=== PATIENT | female | born 1950 | race Caucasian/White ===

== ENCOUNTER 2019-08-08 09:55 | Outpatient (CLI) | payer MEDICARE, BC ==
--- NOTE | 2019-08-08 10:56 | MRI ---
MRI Lumbar Spine WO Con HISTORY: Back pain which radiates to hip and knee region worse on the right. COMPARISON: None. FINDINGS: The vertebral bodies are normal in height disc space height all appears well preserved. The re is no significant periaortic adenopathy and the visualized portions of the kidneys appear unremarkable. T11-12: There is a mild disc bulge at this level with some borderline canal narrowing. T12-L1: Unremarkable. L1-2: Degenerative facet changes without canal or foraminal stenosis. L2-3: Degenerative facet changes without canal or foraminal narrowing. L3-4: Mild degenerative facet changes are present no significant canal or foraminal stenosis. L4-5: Mild degenerative facet changes and mild ligamentous hypertrophic changes are seen at this leve l there is borderline left-sided foraminal narrowing. L5-S1: Degenerative facet changes without canal or foraminal stenosis. IMPRESSION: 1. Mild disc bulge at T11-12 with borderline canal narrowing. Also some borderline left foraminal oscar rowing at the L4-5 level.
== END 2019-08-08 09:56 | disposition home or self-care (01) ==
LOC: SCSMRI 09:55
PROVIDERS: ATTEND Orthopaedic Surgery
DX: M47.816 Spondylosis without myelopathy or radiculopathy, lumbar region (principal); M51.84 Other intervertebral disc disorders, thoracic region; M48.04 Spinal stenosis, thoracic region; M48.061 Spinal stenosis, lumbar region without neurogenic claudication
CPT/HCPCS: 72148

== ENCOUNTER 2019-12-05 11:00 | Outpatient (CLI) | payer MEDICARE, BC ==
--- NOTE | 2019-12-05 12:11 | ULT ---
EXAM: US Thyroid STANDARD PROVIDED CLINICAL HISTORY: Hypothyroidism COMPARISON: None FINDINGS: The right lobe of thyroid gland measures 1.2 cm x 2.8 cm x 1.2 cm the left lobe measuring 0.8 cm x 2. 8 cm x 1.2 cm. The thyroid isthmus measures 0.3 cm in AP dimensions. Thyroid gland demonstrates generalized heterogeneity. There is a heterogeneous nodule in the right lobe of the thyroid gland which measures 1.1 cm in maxim al dimension. No additional thyroid nodule is seen in either lobe of the thyroid gland. IMPRESSION: TI RADS level 4 nodule right lobe of the thyroid gland. Moderately suspicious nodule. According to [facility] R white paper guidelines, follow-up evaluation is recommended in one year for a nodule of this size and imaging characteristics.
== END 2019-12-05 11:01 | disposition home or self-care (01) ==
LOC: SCSULT 11:00
PROVIDERS: ATTEND Family Medicine
DX: E03.9 Hypothyroidism, unspecified (principal); R94.6 Abnormal results of thyroid function studies; E04.1 Nontoxic single thyroid nodule
CPT/HCPCS: 76536